=== PATIENT | female | born 1990 | race African-American/Black ===

== ENCOUNTER 2024-01-08 13:00 | Emergency (ER) | payer MEDICAID ==
[~2024-01-08] VITALS: Ht 157.5 cm; Wt 83.4 kg
[2024-01-08 13:03] VITALS: BP 115/73; TEMP 96.8; O2SAT 99
[2024-01-08] MEDS: ONDANSETRON 4MG ORAL DISINTEGRATING TAB SL STA (14:25)
[2024-01-08 14:30] LABS: BASO % 0.1 % (0.0-1.0); HEMATOCRIT 43.6 % (36.0-47.0); HEMOGLOBIN 14.8 g/dl (12.0-15.5); LYMPH # 0.8 10^3/uL (1.5-5.0); LYMPH % 11.5 % (24.0-44.0); MEAN CORPUSCULAR HGB CONC 33.9 g/dl (32.0-36.5); MEAN CORPUSCULAR VOLUME 91.2 fl (80.0-96.0); MONO # 0.3 10^3/uL (0.0-0.8); MONO % 4.2 % (2.0-8.0); NEUTROPHILS # 5.6 10^3/uL (1.5-8.5); NEUTROPHILS % 84.1 % (36.0-66.0); PLATELET COUNT, AUTOMATED 383 10^3/uL (150-450); RED BLOOD COUNT 4.78 10^6/uL (4.00-5.40); WHITE BLOOD COUNT 6.7 10^3/uL (4.0-10.0)
[2024-01-08 14:53] LABS: LIPASE 30 U/L (12-53)
[2024-01-08 14:55] LABS: ALBUMIN 4.1 G/DL (3.2-5.2); ALKALINE PHOSPHATASE 64 U/L (46-116); ALT/SGPT 15 U/L (7.0-40); AST/SGOT 13 U/L (<34); BILIRUBIN,DIRECT 0.2 MG/DL (<0.4); BILIRUBIN,TOTAL 0.7 MG/DL (0.3-1.2); BLOOD UREA NITROGEN 11 MG/DL (9-23); CALCIUM LEVEL 10.5 MG/DL (8.5-10.1); CARBON DIOXIDE LEVEL 26 MMOL/L (20-31); CHLORIDE LEVEL 110 MMOL/L (98-107); CREATININE FOR GFR 0.79 MG/DL (0.55-1.30); GLOMERULAR FILTRATION RATE > 60.0 (>60); GLUCOSE, FASTING 104 MG/DL (60-100); POTASSIUM SERUM 4.3 MMOL/L (3.5-5.1); SODIUM LEVEL 142 MMOL/L (136-145); TOTAL PROTEIN 8.7 G/DL (5.7-8.2)
[2024-01-08 15:03] LABS: HCG, SERUM QUALITATIVE NEGATIVE (NEGATIVE)
== END 2024-01-08 16:27 | disposition home or self-care (01) ==
LOC: M ED 13:00
DX: K52.9 Noninfective gastroenteritis and colitis, unspecified (principal)

== ENCOUNTER → 2024-01-11 | Outpatient (REF) | payer MEDICAID ==
[2024-01-11 14:46] LABS: Trichomonas vaginalis (AMP) NOT DETECTED (NEGATIVE)
[2024-01-11 15:09] LABS: GC DNA AMPLIFICATION NEGATIVE (NEGATIVE)
[2024-01-11 19:14] LABS: HIV 1&2 SCREEN NEGATIVE (NEGATIVE)
[2024-01-11 19:22] LABS: HEPATITIS C VIRUS ABY INDEX 0.05 INDEX (<0.8)
== END ==
LOC: M LAB REF 12:36
PROVIDERS: ATTEND Family Medicine Addiction Medicine
DX: Z20.2 Contact with and (suspected) exposure to infections with a predominantly sexual mode of transmission (principal)

== ENCOUNTER 2024-10-04 17:58 | Emergency (ER) | payer MEDICAID, OTHER ==
[~2024-10-04] VITALS: Ht 160 cm; Wt 78.7 kg
[2024-10-04 23:46] VITALS: BP 152/79; TEMP 98.1; O2SAT 98
[2024-10-05] MEDS: IBUPROFEN 600 MG TAB PO ONE (00:21)
[2024-10-05] MEDS ORDERED: IBUP600T42 PO (04:05)
== END 2024-10-05 04:42 | disposition home or self-care (01) ==
LOC: M ED 17:58
DX: S00.33XA Contusion of nose, initial encounter (principal); Y04.8XXA Assault by other bodily force, initial encounter; Z79.1 Long term (current) use of non-steroidal anti-inflammatories (NSAID); Y92.009 Unspecified place in unspecified non-institutional (private) residence as the place of occurrence of the external cause; Y93.89 Activity, other specified; Y99.9 Unspecified external cause status